=== PATIENT | male | born 1955 | race Two or more races ===

== ENCOUNTER 2018-08-22 06:17 | Day surgery (SDC) | payer OTHER ==
[~2018-08-22] VITALS: Ht 152.4 cm; Wt 93.1 kg
[~2018-08-22 06:17] MED LIST: AMLO-150 PO; ASPI-496 PO; CALC0.25 PO; ERGO500017 PO; FURO-92 PO; GABA300C10 PO; INSU100I11 SQ-INSULIN; INSU100V8 SQ; ISON300T10 PO; LISI-170 PO; PYRI50TA6 PO; ROSU10TA2 PO
[2018-08-22] MEDS ORDERED: CEFAZOLIN 2,000 MG in SODIUM CHLORIDE 0.9% 50 ML IV SCH (07:00)
[2018-08-22 07:03] VITALS: BP 144/90
[2018-08-22] MEDS ORDERED: SODIUM CHLORIDE 0.9% 1,000 ML IV SCH (07:05)
[2018-08-22 07:35] LABS: BASOPHILS # (AUTO) 0.08 x10^3/uL (0-0.1); BASOPHILS % (AUTO) 1 % (0-1); EOSINOPHILS # (AUTO) 0.29 x10^3/uL (0-0.4); EOSINOPHILS % (AUTO) 3 % (1-7); LYMPHOCYTES # (AUTO) 2.37 x10^3/uL (1-3.4); LYMPHOCYTES % (AUTO) 26 % (22-44); MD NO; MEAN CORPUSCULAR HEMOGLOBIN 28.8 pg (27.5-34.5); MEAN CORPUSCULAR HGB CONC 32.5 g/dL (33.2-36.2); MEAN CORPUSCULAR VOLUME 88.6 fL (81-97); MEAN PLATELET VOLUME 8.1 fL (7.4-10.4); MONOCYTES # (AUTO) 0.74 x10^3/uL (0.2-0.8); MONOCYTES % (AUTO) 8 % (2-9); NEUTROPHILS # (AUTO) 5.74 x10^3/uL (1.8-6.8); NEUTROPHILS % (AUTO) 62 % (42-75); PLATELET COUNT 190 x10^3/uL (130-400); RED BLOOD COUNT 4.25 x10^6/uL (4.38-5.82); RED CELL DISTRIBUTION WIDTH 13.9 % (9.4-14.8)
[2018-08-22] MEDS ORDERED: INSU100V5 SQ-INSULIN (07:39)
[2018-08-22] MEDS ORDERED: SEVE800T8 PO (07:39)
[2018-08-22] MEDS ORDERED: ISON300T10 PO (07:39)
[2018-08-22] MEDS ORDERED: DULO20CA45 PO (07:39)
[2018-08-22] MEDS ORDERED: INSU100V8 SQ (07:39)
[2018-08-22] MEDS ORDERED: GLYB5TAB3 PO (07:39)
[2018-08-22] MEDS ORDERED: PYRI50TA6 PO (07:39)
[2018-08-22] MEDS ORDERED: BLOOD PRESSURE MED PO (07:42)
[2018-08-22 07:43] LABS: INTERNATIONAL NORMALIZED RATIO 0.99 (0.93-1.1); PROTHROMBIN TIME 10.4 Seconds (9.6-11.5)
[2018-08-22 07:44] LABS: ANION GAP 11 mmol/L (5-15); CALCIUM 8.3 mg/dL (8.5-10.1); CHLORIDE 107 mmol/L (98-107); CREATININE 7.65 mg/dL (0.7-1.3)
[2018-08-22] MEDS ORDERED: FENTANYL PF 100 MCG/2ML ONE (08:06)
[2018-08-22] MEDS ORDERED: PROPOFOL 10 MG/ML, 20ML ONE (08:06)
[2018-08-22] MEDS ORDERED: MIDAZOLAM 1 MG/ML, 2ML ONE (08:06)
[2018-08-22] MEDS ORDERED: SUCCINYLCHOLINE 20 MG/ML, 10ML ONE (08:07)
[2018-08-22] MEDS ORDERED: PROTAMINE SULFATE 10 MG/ML, 5ML ONE (08:47)
[2018-08-22] MEDS ORDERED: BUPIVACAINE/PF 0.5% ONE (08:47)
[2018-08-22] MEDS ORDERED: PAPAVERINE 30 MG/ML, 2ML ONE (08:47)
[2018-08-22] MEDS ORDERED: LIDOCAINE/PF 0.5% ,50ML ONE (08:48)
[2018-08-22] MEDS ORDERED: BACITRACIN 50,000 UNIT ONE (08:48)
[2018-08-22] MEDS ORDERED: THROMBIN 5,000 UNIT VIAL TP ONE (08:48)
[2018-08-22] MEDS ORDERED: HEPARIN 1,000 UNITS/ML, 10ML ONE (08:48)
[2018-08-22] MEDS ORDERED: EPINEPHRINE 1 MG/ML, 1ML ONE (08:48)
[2018-08-22] MEDS ORDERED: LIDOCAINE-MPF 2% ,5ML ONE (08:53)
[2018-08-22] MEDS ORDERED: ONDANSETRON 2MG/ML, 2ML ONE (09:15)
[2018-08-22] MEDS ORDERED: CEFAZOLIN 1,000 MG ONE (09:15)
[2018-08-22] MEDS ORDERED: ONDANSETRON 2MG/ML, 2ML IV PRN (09:30)
[2018-08-22] MEDS ORDERED: LABETALOL 5MG/ML, 20ML IV PRN (09:30)
[2018-08-22] MEDS ORDERED: hydrALAzine 20 MG/ML, 1ML IV PRN (09:30)
[2018-08-22] MEDS ORDERED: FENTANYL PF 100 MCG/2ML IV PRN (09:30)
[2018-08-22] MEDS ORDERED: OXYcodone 5 MG/5 ML ORAL.SOL UDC PO PRN (09:30)
[2018-08-22] MEDS ORDERED: METOPROLOL 1 MG/ML, 5ML IV PRN (09:30)
== END 2018-08-22 13:40 | disposition home or self-care (01) ==
LOC: OUT 06:17
PROVIDERS: ATTEND Surgery
DX: E11.22 Type 2 diabetes mellitus with diabetic chronic kidney disease (principal); I12.0 Hypertensive chronic kidney disease with stage 5 chronic kidney disease or end stage renal disease; N18.6 End stage renal disease; E78.5 Hyperlipidemia, unspecified; Z79.82 Long term (current) use of aspirin; Z79.4 Long term (current) use of insulin; E66.01 Morbid (severe) obesity due to excess calories; Z68.41 Body mass index [BMI] 40.0-44.9, adult
CPT/HCPCS: 36415; 36821; 80048; 82962; 85025; 85610; 85730; 93005; J0330; J0690; J1644; J2250; J2405; J2704; J2720; J3010; J7030; J0171; J2001; J2440